=== PATIENT | female | born 1995 | race Caucasian/White ===

== ENCOUNTER 2017-02-25 19:26 | Emergency (ER) | payer MEDICAID ==
--- NOTE | ~2017-02-25 | CR63 ---
[facility] A Service of [facility] RADIOLOGY TEXT RESULTS PATIENT: ADRIAN ORLANDO LOCATION: SED : [birth year] UNIT #: [id number] AGE: [address]: BEVERLEY BRAND SEX: F ORDER DR: [id number] [place] [id number] E MR#: [id number] Acc #: [id number] NAME: ADRIAN ORLANDO : 1995 SEX: F STUDY DATE/TIME: 02/25/2017 21:13 UNIT: SED ROOM: STUDY DESCRIPTION: CR Chest 2 View Attending Physician: Beverley Brand Ordering Physician: Physician Non-Staff Primary Care Physician: Primary Care Physician No MEDICAL IMAGING REPORT This report is preliminary unless electronic signature is present. EXAM Chest x-ray HISTORY Chest pain, especially when taking a deep breath. Onset this morning. TECHNIQUE 2 views the chest were obtained. FINDINGS PA and lateral examination of the chest upright shows a good expansion of the parenchyma with a normal distribution of the pulmonary vascularity. There is no indication of congestion, effusion, infiltrate, tumor, or nodular density. The pleural reflections and diaphragmatic contours are normal. The cardiac silhouette and mediastinal anatomy is within normal limits. IMPRESSION Normal chest. Dictated by... Chilango Thomas M.D. THIS IS AN ELECTRONICALLY VERIFIED REPORT Chilango Thomas M.D. at 02/25/2017 10:19 PM KIM/nettie TD: 02/25/2017 21:40 JOB #: [id number] [facility] A Service of [facility] RADIOLOGY TEXT RESULTS PATIENT: ADRIAN ORLANDO LOCATION: SED : [birth year] UNIT #: [id number] AGE: [address]: BEVERLEY BRAND SEX: F ORDER DR: MEDICAL IMAGING REPORT Page 1 of 1
[~2017-02-25 19:26] MED LIST: BACTRIM DS TABL1 TA1 PO; BIRTH CONTROL PILL PO; MOTRIN600 M1 PO; ZOFRAN ODT4 MG/UDTAB PO
== END 2017-02-25 22:15 | disposition home or self-care (01) ==
LOC: SED 19:26
DX: R07.89 Other chest pain (principal); J06.9 Acute upper respiratory infection, unspecified
CPT/HCPCS: 71020; 99283